=== PATIENT | male | born 1995 | race African-American/Black ===

== ENCOUNTER 2025-07-15 09:35 | Outpatient (CLI) | payer OTHER, SELFPAY | END 2025-07-15 09:36 | disposition home or self-care (01) | LOC: AMB 07-22 14:37 | PROVIDERS: Visit Provider Family Medicine | DX: S29.9XXA Unspecified injury of thorax, initial encounter (principal); V47.0XXA Car driver injured in collision with fixed or stationary object in nontraffic accident, initial encounter; Y92.410 Unspecified street and highway as the place of occurrence of the external cause | CPT/HCPCS: A0998 ==